=== PATIENT | female | born 1950 | race Two or more races ===

== ENCOUNTER → 2024-09-03 | Outpatient (CLI) | payer OTHER, SELFPAY ==
[2024-09-03 10:40] LABS: Basophils # (Auto) 0.1 Thou/mm3 (0.0-0.2); Basophils % (Auto) 1 % (0-2.5); Eosinophils # (Auto) 0.5 Thou/mm3 (0.0-0.5); Eosinophils % (Auto) 4 % (0-10); Hematocrit 41.5 % (36.0-46.0); Hemoglobin 13.8 g/dL (12.0-16.0); Immature Granulocytes % (Auto) 0 % (0-0); Immature Granulocytes Auto 0.04 Thou/mm3 (0.00-0.00); Lymphocytes % (Auto) 29 % (10-50); Mean Corpuscular HGB Conc 33.3 g/dl (31.0-37.0); Mean Corpuscular Hemoglobin 29.6 pg (25.0-35.0); Mean Corpuscular Volume 89 fL (80-100); Monocytes # (Auto) 0.9 Thou/mm3 (0.0-0.8); Monocytes % (Auto) 9 % (0-12); Neutrophils # (Auto) 6.1 Thou/mm3 (1.8-7.7); Neutrophils % (Auto) 58 % (37-80); Nucleated Red Blood Cell % 0 /100 WBC (0); Platelet Count 367 Thou/mm3 (140-440); RDW Standard Deviation 46.9 fL (36.4-46.3); Red Blood Count 4.67 Miln/mm3 (4.00-5.20); White Blood Count 10.6 Thou/mm3 (3.6-11.0)
[2024-09-03 11:07] LABS: Alanine Aminotransferase 19 U/L (10-49); Albumin, Serum 4.6 gm/dL (3.4-4.8); Albumin/Globulin Ratio 1.6 (1.2-2.2); Alkaline Phosphatase 120 U/L (46-116); Anion Gap 8 (7-16); Aspartate Amino Transferase 25 U/L (0-34); BUN/Creatinine Ratio 41 Ratio (12-20); Bilirubin,Total 0.4 mg/dL (0.3-1.2); Blood Urea Nitrogen 33 mg/dL (9-23); Calcium 9.7 mg/dL (8.3-10.6); Calcium (Corrected) 9.7 mg/dL (8.5-10.1); Chloride 104 mMol/L (98-107); Creatinine (Component) 0.8 mg/dL (0.6-1.3); Globulin 2.9 gm/dL (2.3-3.5); Glucose 103 mg/dL (74-106); Osmolality,Calculated 288 (275-295); Potassium 4.7 mMol/L (3.4-5.1); Sodium 141 mMol/L (136-145); Total Protein 7.5 gm/dL (5.7-8.2); eGFR > 60 See Note
== END | disposition home or self-care (01) ==
LOC: COPL 09:34
PROVIDERS: PCP Family Medicine; Referring Provider Physician Assistant Medical; Visit Provider Physician Assistant Medical
DX: E11.9 Type 2 diabetes mellitus without complications (principal); E78.00 Pure hypercholesterolemia, unspecified; I10 Essential (primary) hypertension; M17.0 Bilateral primary osteoarthritis of knee; M47.812 Spondylosis without myelopathy or radiculopathy, cervical region; M47.816 Spondylosis without myelopathy or radiculopathy, lumbar region; Z13.820 Encounter for screening for osteoporosis; Z78.0 Asymptomatic menopausal state
CPT/HCPCS: 36415; 80053; 85025

== ENCOUNTER 2024-09-04 09:59 | Emergency (ER) | payer OTHER, SELFPAY ==
[2024-09-04 10:13] VITALS: BP 193/82; BP 208/91; PULSE 70; RESP 18; TEMP 36.7; O2SAT 96; BMI 29.7
--- NOTE | 2024-09-04 10:19 | EKG_ITS ---
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
--- NOTE | 2024-09-04 10:20 | XR_ITS ---
Examination: PA lateral chest 2 views TECHNIQUE: Upright PA lateral chest 2 views Exam date and time: September 04, 2024 1035 hours Comparison 04/20/2024 INDICATIONS: Chest pain dizziness beginning today. FINDINGS: Minimal prominence left ventricle Prominent vascular congestion with septal edema at the lung bases Moderate osteopenia Fluid in the fissure on the lateral view IMPRESSION: Suspicious for mild heart failure No lobar pneumonia
--- NOTE | 2024-09-04 10:21 | PD.EDRME ---
Rapid Medical Screening Exam [facility], LAT[facility] Arrival date/time: 09/04/24 09:59 74-year-old female with a history of congestive heart failure, hyperlipidemia, hypertension, type 2 diabetes presents to the emergency room with a chief complaint of a posterior headache, numbness to her left arm x 3 days, and a high blood pressure reading this morning. I have greeted and performed a focused initial assessment of this patient. A comprehensive ED assessment and evaluation of the patient, analysis of all test results, and completion of the medical decision making process will be conducted by additional ED providers. Chief Complaint: Dizziness Time Seen by Provider: 09/04/24 10:07 Vital signs: Vital Signs Temperature 98.1 F 09/04/24 10:13 Pulse Rate 70 09/04/24 10:13 Respiratory Rate 18 09/04/24 10:13 Blood Pressure 208/91 H 09/04/24 10:13 Pulse Oximetry (%) 96 09/04/24 10:13 Oxygen Delivery Method Room Air 09/04/24 10:13 Vital signs reviewed by provider: Yes
[2024-09-04 11:17] LABS: Basophils # (Auto) 0.1 Thou/mm3 (0.0-0.2); Basophils % (Auto) 1 % (0-2.5); Eosinophils # (Auto) 0.3 Thou/mm3 (0.0-0.5); Eosinophils % (Auto) 3 % (0-10); Hematocrit 42.3 % (36.0-46.0); Hemoglobin 14.5 g/dL (12.0-16.0); Immature Granulocytes % (Auto) 0 % (0-0); Immature Granulocytes Auto 0.03 Thou/mm3 (0.00-0.00); Lymphocytes # (Auto) 2.6 Thou/mm3 (1.0-4.8); Lymphocytes % (Auto) 25 % (10-50); Mean Corpuscular HGB Conc 34.3 g/dl (31.0-37.0); Mean Corpuscular Hemoglobin 29.9 pg (25.0-35.0); Mean Corpuscular Volume 87 fL (80-100); Monocytes # (Auto) 0.9 Thou/mm3 (0.0-0.8); Monocytes % (Auto) 9 % (0-12); Neutrophils # (Auto) 6.4 Thou/mm3 (1.8-7.7); Neutrophils % (Auto) 62 % (37-80); Nucleated Red Blood Cell % 0 /100 WBC (0); Platelet Count 339 Thou/mm3 (140-440); RDW Standard Deviation 45.3 fL (36.4-46.3); Red Blood Count 4.85 Miln/mm3 (4.00-5.20); White Blood Count 10.3 Thou/mm3 (3.6-11.0)
--- NOTE | 2024-09-04 11:17 | PD.EDDIZZY ---
ED Dizzyness RME/HPI General Chief Complaint: Dizziness Stated Complaint: Left arm numbness, MOSLEY, dizzy Time Seen by Provider: 09/04/24 10:07 Arrival date/time: 09/04/24 09:59 RME / HPI RME / HPI Narrative: 74-year-old female with a history of congestive heart failure, hyperlipidemia, hypertension, type 2 diabetes presents to the emergency room with a chief complaint of a posterior headache, numbness to her left arm x 3 days, and a high blood pressure reading this morning. Severity of symptoms mild. Patient denies any upper or lower extremity weakness. Denies any chest pain denies any vomiting denies any blurry vision. Patient also denies any fever. Denies any recent fall or trauma. Related Data Home Medications ?Medication ?Instructions ?Recorded ?Confirmed linaclotide 290 mcg capsule 290 mg PO QDAY ##0 10/17/16 05/08/23 (Linzess) carvedilol 12.5 mg tablet (Coreg) 25 mg PO BID 05/26/18 05/08/23 empagliflozin 25 mg tablet 1 tab PO 1XD 03/30/22 05/08/23 (Jardiance) losartan 50 mg tablet 50 tab PO DAILY 04/24/22 05/08/23 nitroglycerin 0.4 mg sublingual 1 tab buccal Q5MIN Chest Pain 04/24/22 05/08/23 tablet aspirin 81 mg chewable tablet 81 mg PO QDAY 01/26/23 05/08/23 clopidogrel 75 mg tablet 75 mg PO QDAY 01/26/23 05/08/23 atorvastatin 20 mg tablet 20 mg PO QDAY 05/08/23 05/08/23 celecoxib 200 mg capsule (Celebrex) mg 05/08/23 gabapentin 300 mg tablet 300 mg PO BID 05/08/23 05/08/23 metformin 1,000 mg tablet 1,000 mg PO QDAY 05/08/23 05/08/23 Held on 05/08/23. Instructions: Resume on 05/10/23. NO TOME METFORMIN POR 48 HORAS. Previous Rx's ?Medication ?Instructions ?Recorded amoxicillin 875 mg-potassium 1 tab PO BID #14 tabs 09/04/24 clavulanate 125 mg tablet Allergies Allergy/AdvReac Type Severity Reaction Status Date / Time No Known Allergies Allergy Verified 04/20/24 16:38 Review of Systems Review of Systems Narrative Review of Systems: Review of system reviewed and within normal limits except mentioned in HPI ED Exam Narrative Physical exam: VITAL SIGNS: Reviewed. GENERAL APPEARANCE: Alert and interactive, follows commands, no acute distress, HEAD AND FACE: Non-traumatic. ENT: PERRL, pink conjunctivitis, eyelid no trauma, Mucous membrane moist. NECK: Supple, nontender, no nuchal rigidity. CHEST: No tenderness, no crepitus, no paradoxical movement, no retractions. LUNGS: Clear, well ventilated, symmetric, no rales, no wheezing, no ronchi, no stridor, good breath sounds bilaterally. HEART: Regular rate, regular rhythm, no murmur, no gallops. ABDOMEN: Soft, positive bowel sounds, nondistended, no guarding, nontender, no rebound, no masses, RECTAL: Deferred. GENITAL: Deferred. NEUROLOGICAL: Gross motor function intact sensory function intact, Appropriate for age. MUSCULOSKELETAL: low back nontender, full range of motion. EXTREMITIES: Nontender, full range of motion. SKIN: Color pink, dry, no rash, no lacerations, no abrasions, no contusions. LYMPHATICS: Deferred. Course Quality Measures none Orders Category Date Time Status EKG (ED ONLY) *Do not use* NOW Care 09/04/24 10:[address] head/brain wo con Stat Exams 09/04/24 12:37 Completed EKG (ED Only) Stat Exams 09/04/24 10:19 Draft XR chest 2V Stat Exams 09/04/24 10:20 Completed B-Type Natriuretic Peptide Stat Lab 09/04/24 10:42 Completed CBC Stat Lab 09/04/24 10:42 Completed Comprehensive Metabolic Panel Stat Lab 09/04/24 10:42 Completed Magnesium Stat Lab 09/04/24 10:42 Completed Troponin I Stat Lab 09/04/24 10:42 Completed Acetaminophen Tab [Tylenol ES Tab] Med 09/04/24 11:27 Discontinued 500 mg PO X1 ONE cloNIDine HCL [Catapres] Med 09/04/24 10:20 Discontinued 0.1 mg PO X1 ONE hydrALAZINE HCL [Apresoline] Med 09/04/24 11:27 Discontinued 25 mg PO X1 ONE Vital Signs Vital signs: Vital Signs Temperature 98.1 F 09/04/24 10:13 Pulse Rate 70 09/04/24 10:13 Respiratory Rate 18 01/31/25 10:13 Blood Pressure 208/91 H 09/04/24 10:13 Pulse Oximetry (%) 96 09/04/24 10:13 Oxygen Delivery Method Room Air 09/04/24 10:13 Dizziness MDM Narrative MDM Narrative:: 74-year-old female with a history of congestive heart failure, hyperlipidemia, hypertension, type 2 diabetes presents to the emergency room with a chief complaint of a posterior headache, numbness to her left arm x 3 days, and a high blood pressure reading this morning. Severity of symptoms mild. Patient denies any upper or lower extremity weakness. Denies any chest pain denies any vomiting denies any blurry vision. Patient also denies any fever. Denies any recent fall or trauma. CT scan of the head came back unremarkable except for acute maxillary sinusitis. #2 workup came back unremarkable. Urinalysis no UTI. EKG showed normal sinus rhythm, ventricular rate of 70 bpm, no ST segment elevation or depression noted. Chest x-ray showed mild congestive heart failure otherwise unremarkable. Patient data External records reviewed:: None Clinical information provided by:: patient and family Social determinants that could affect healthcare access:: none Patient has the following chronic illnesses:: Hypertension congestive heart failure hyperlipidemia diabetes mellitus How is presenting disease/condition affected by chronic disease/condition?: no chronic disease Evaluation data The following diagnostics were reviewed and interpreted by me:: lab results and radiology exam(s) Lab and/or radiology exams considered but not ordered:: None Interpretation Summary: EKG showed sinus rhythm, ventricular rate of 70 bpm, [place] interval 171 MS, no ST segment elevation depression noted. Medications / Prescriptions Medications or Prescriptions considered but not ordered:: None Medication administrations:: Medication Administration History Discontinued Medications Acetaminophen (Acetaminophen 500 Mg Tablet) 500 mg PO X1 ONE Stop: 09/04/24 11:28 Last Admin: 09/04/24 11:47 Dose: 500 mg Documented By: PHILLIP Clonidine (Clonidine Hcl 0.1 Mg Tablet) 0.1 mg PO X1 ONE Stop: 09/04/24 10:21 Last Admin: 09/04/24 11:46 Dose: 0.1 mg Documented By: PHILLIP Hydralazine HCl (Hydralazine Hcl 25 Mg Tablet) 25 mg PO X1 ONE Stop: 09/04/24 11:28 Last Admin: 09/04/24 13:40 Dose: Not Given Documented By: DB Non-Admin Reason: Cancelled by Provider Hydralazine, clonidine, and Tylenol Consultations Consultation(s) initiated? (list below): No Diagnosis Dizziness Differential Diagnosis: adverse reaction to drug and benign paroxysmal positional vertigo Most likely diagnosis given after review of the tests above:: Maxillary sinusitis Admission Indicated Admission indicated?: not indicated Explain why admission is indicated or not indicated:: Stable Admission Request Was there a request for admission?: No Disposition Plan Disposition Plan: Discharge Discharge Attestation Discharge Attestation: The patient and all family members were given an opportunity to ask questions and understood the discharge instructions. Discharge instructions specifically effects, indications for sooner follow up or return to the emergency department, and the expected course of current diagnosis. Patient condition: Stable Discharge Plan Plan Patient Disposition: HOME (Self Care) Disposition Comment: Stable Prescriptions/Referrals Prescriptions/Med Rec: New amoxicillin-pot clavulanate 875-125 mg tablet 1 tab PO BID Qty: 14 0RF No Action Linzess 290 MCG capsule 290 mg PO QDAY Qty: 0 Jardiance 25 mg tablet 1 tab PO 1XD Rx Instructions: pt states she does not take this every day carvedilol [Coreg] 12.5 mg Tablet 25 mg PO BID losartan 50 mg tablet 50 tab PO DAILY nitroglycerin 0.4 mg tablet, sublingual 1 tab BUCCAL Q5MIN MDD 3 celecoxib [Celebrex] 200 mg Capsule atorvastatin 20 mg Tablet 20 mg PO QDAY metformin 1,000 mg Tablet 1,000 mg PO QDAY gabapentin 300 mg Tablet 300 mg PO BID clopidogrel 75 mg tablet 75 mg PO QDAY Patient Comments: TAKE 1 TABLET BY MOUTH EVERY DAY FOR 90 DAYS aspirin 81 mg Tablet,Chewable 81 mg PO QDAY Referrals: Alondra Harper MD [Primary Care Provider] - In 1 week Problem List Clinical Impression: Dizziness, Acute maxillary sinusitis Patient/Caregiver Discharge Instructions Discharge Activity: activity as tolerated Education Materials: Causes of Sinusitis Additional Instructions: Thank you for the opportunity for serving you today. You are stable for discharged . You are advised to: Follow-up with your PCP in 1 to 2 days Return to ED for worsening of symptoms Increase oral fluids Take medication as prescribed Print Language: Serbian Stand Alone Forms: Sammi Award Info., Patient Portal Info Letter TASH/LIBAN Supervising Physician TASH/LIBAN Supervising Physician: MD Rani
[2024-09-04 11:22] VITALS: BP 186/70; PULSE 75; RESP 13; O2SAT 98
[2024-09-04 11:42] LABS: B-Type Natriuretic Peptide 123 pg/mL (0-100)
[2024-09-04 11:46] VITALS: BP 186/70; PULSE 61
[2024-09-04] MEDS: cloNIDine HCL 0.1 MG TABLET PO (11:46)
[2024-09-04] MEDS: ACETAMINOPHEN 500 MG TABLET PO (11:47)
[2024-09-04 12:02] LABS: Alanine Aminotransferase 16 U/L (10-49); Albumin, Serum 4.9 gm/dL (3.4-4.8); Albumin/Globulin Ratio 1.5 (1.2-2.2); Alkaline Phosphatase 116 U/L (46-116); Anion Gap 8 (7-16); Aspartate Amino Transferase 24 U/L (0-34); BUN/Creatinine Ratio 31 Ratio (12-20); Bilirubin,Total 0.4 mg/dL (0.3-1.2); Blood Urea Nitrogen 25 mg/dL (9-23); Calcium 9.7 mg/dL (8.3-10.6); Calcium (Corrected) 9.7 mg/dL (8.5-10.1); Chloride 104 mMol/L (98-107); Creatinine (Component) 0.8 mg/dL (0.6-1.3); Estimated Creatinine Clearance 47.5 mL/min (>60); Globulin 3.2 gm/dL (2.3-3.5); Glucose 129 mg/dL (74-106); Osmolality,Calculated 287 (275-295); Potassium 4.3 mMol/L (3.4-5.1); Sodium 141 mMol/L (136-145); Total Protein 8.1 gm/dL (5.7-8.2); Troponin I < 0.020 ng/mL (0.0-0.045); eGFR > 60 See Note
--- NOTE | 2024-09-04 12:37 | XR_ITS ---
Examination: CT brain head without contrast. 2-D sagittal coronal reconstructions Date and time of exam:September 04, 2024 1316 hours INDICATIONS: Generalized head pain today COMPARISON: 04/20/2024 CTDI: vol (mGy):46.9 DLP: (mGycm):18 Technique: Multiple CT axial sections of the brain have been obtained, 5 mm slice thickness. Contrast has not been administered. 2-D sagittal, coronal reconstructions have been obtained Low dose protocols were performed. One or more of the following dose reduction techniques were used; automated exposure control, adjustment of the mA and/or KV according to patient size, use of iterative reconstruction technique. Findings: No significant ventricular enlargement. Intra-axial or extra-axial hemorrhage density is not seen. No mass effect or midline shift Basal cisterns are not remarkable. Fourth ventricle is midline. Cranial vault intact. Chronic ethmoid sinusitis Acute right maxillary sinusitis Impression: Negative for acute hemorrhage, mass effect or midline shift Acute right maxillary sinusitis
[2024-09-04 13:36] VITALS: BP 128/62; PULSE 68; RESP 16; TEMP 36.7; O2SAT 98
[2024-09-04 15:47] VITALS: BP 165/68; PULSE 68; RESP 16; TEMP 36.6; O2SAT 96
== END 2024-09-04 15:48 | disposition home or self-care (01) ==
PROVIDERS: Nurse Practitioner Family; Emergency Provider Emergency Medicine; PCP Family Medicine
DX: R42 Dizziness and giddiness (principal); J01.00 Acute maxillary sinusitis, unspecified; I11.0 Hypertensive heart disease with heart failure; I50.9 Heart failure, unspecified; E78.5 Hyperlipidemia, unspecified; E11.9 Type 2 diabetes mellitus without complications
CPT/HCPCS: 36415; 70450; 71046; 80053; 83735; 83880; 84484; 85025; 93005; 99284; A9270

== ENCOUNTER 2024-09-18 21:57 | Emergency (ER) | payer OTHER, SELFPAY ==
[2024-09-18] VITALS (19 sets, daily range): BP systolic 0–259; BP diastolic 0–157; PULSE 0–149; RESP 2–64; O2SAT 39–77; BMI 26.9
[2024-09-18] MEDS: EPINEPHrine INJ 0.1 MG/ML SYRINGE 10ML 1 MG IV (22:08)
[2024-09-18] MEDS: ETOMIDATE INJ 2 MG/ML VIAL 10 ML 20 MG IVP (22:11)
[2024-09-18] MEDS: SUCCINYLCHOLINE INJ 20 MG/ML VIAL 10 ML 100 MG IV (22:11)
--- NOTE | 2024-09-18 22:15 | PD.EDCHEST ---
ED Chest Pain RME/HPI General Chief Complaint: Chest Pain Stated Complaint: SOB, CHEST PAIN Time Seen by Provider: 09/18/24 22:02 Arrival date/time: 09/18/24 21:57 RME / HPI RME / HPI narrative: This section includes all my notes and documentations, including HPI, PE, and ED course. Bright Saravia MD HPI: 74yo female with a history of HTN, HLD, DM presents to the ED for a chief complaint of chest pain. Per nursing staff, patient was saturating at 46% RA in triage and was immediately placed in a room. Patient was also found to be bradycardic in the 40s. Code lindsay was called at 2206 and was intubated at 2213. Per , patient was having chest pain and a cough today, reporting she took 2 nitro (1 at 1500 and another just PATIENT CARE REPRESENTATIVE) without any alleviation of symptoms and appeared to be short of breath, so he brought her in for evaluation. He states she did start coughing blood PATIENT CARE REPRESENTATIVE. Notes that she did recently travel here from [facility]. No other complaints reported. ROS: All negative except as documented in HPI. Physical Exam: General: Lethargic. In severe respiratory distress. Eyes: Conjunctivae and lids clear. ENT: No nasal congestion. Neck: Supple. Heart: Bradycardic. Lungs: In severe respiratory distress. Severely decreased air movement with bilateral rails. Abdomen: Soft and nontender. Legs: No clubbing, cyanosis, edema. Skin: Warm and dry. Neuro: Lethargic. Cranial nerves II through XII grossly normal. No peripheral motor deficits. Prior to diagnostic tests, patient coded. After each resuscitation, she coded again. She coded 4X here. For each code, ACLS protocol followed including cycles of 2-minute chest compressions. I reviewed all diagnostic test results. My interpretation of the EKG is sinus rhythm with nonspecific ST?T changes. My interpretation of the chest x-ray is severe bilateral opacities. My review of the head CT report is no acute findings. My review of the chest CT report is extensive bilateral pneumonia, no PE. Blood tests remarkable for WBC 16.4, D-dimer > 3820, lactic acid 4.9, BNP 194, and negative troponin. UA ordered but urine specimen not sent to lab. Treatment here included Etomidate, Succinylcholine, Epinephrine, Atropine, Propofol, Metoprolol, Magnesium Sulfate, and Heparin. See code sheet for details. Initially, atropine given due to bradycardia. Metoprolol given due to severe high BP and severe tachycardia. MgSO4 2 gram IV given due to short runs of VT. Heparin given prior to chest CT results, due to very high risk of PE. Patient recently drove to [facility] and back. And family reported hemoptysis just prior to arrival. Family requested we stop all efforts. Patient at 2350. Rest in peace. Bright Saravia MD Related Data Home Medications ?Medication ?Instructions ?Recorded ?Confirmed linaclotide 290 mcg capsule 290 mg PO QDAY ##0 10/17/16 05/08/23 (Linzess) carvedilol 12.5 mg tablet (Coreg) 25 mg PO BID 05/26/18 05/08/23 empagliflozin 25 mg tablet 1 tab PO 1XD 03/30/22 05/08/23 (Jardiance) losartan 50 mg tablet 50 tab PO DAILY 04/24/22 05/08/23 nitroglycerin 0.4 mg sublingual 1 tab buccal Q5MIN Chest Pain 04/24/22 05/08/23 tablet aspirin 81 mg chewable tablet 81 mg PO QDAY 01/26/23 05/08/23 clopidogrel 75 mg tablet 75 mg PO QDAY 01/26/23 05/08/23 atorvastatin 20 mg tablet 20 mg PO QDAY 05/08/23 05/08/23 celecoxib 200 mg capsule (Celebrex) mg 05/08/23 gabapentin 300 mg tablet 300 mg PO BID 05/08/23 05/08/23 metformin 1,000 mg tablet 1,000 mg PO QDAY 05/08/23 05/08/23 Held on 05/08/23. Instructions: Resume on 05/10/23. NO TOME METFORMIN POR 48 HORAS. Previous Rx's ?Medication ?Instructions ?Recorded amoxicillin 875 mg-potassium 1 tab PO BID #14 tabs 09/04/24 clavulanate 125 mg tablet Allergies Allergy/AdvReac Type Severity Reaction Status Date / Time No Known Allergies Allergy Verified 04/20/24 16:38 Review of Systems Review of Systems Systems Reviewed: All systems reviewed, normal except as documented Past Medical History Past Medical History NEUROLOGIC: Negative Neurological Disorders or Seizures CARDIAC: Positive Cardiac Disorders, Angina, Coronary Artery Disease, Hypercholesterolemia and Hypertension; Negative Congestive Heart Failure RESPIRATORY: Positive Pneumonia; Negative Chronic Obstructive Pulmonary Disease (COPD) or Asthma GASTROINTESTINAL: Positive Gastrointestinal Disorders and Irritable Bowel GENITOURINARY: Positive Genitourinary Disorders; Negative Renal Disease REPRODUCTIVE: Positive Previous Pregnancies; Negative Pelvic Inflammatory Disease MUSCULOSKELETAL: Positive Musculoskeletal Disorders, Arthritis and Osteomyelitis ENT: Positive Cataracts ENDOCRINE: Positive Endocrine Disorders and Diabetes Mellitus Type 2; Negative Diabetes Mellitus Type 1 HEMATOLOGIC: Positive Blood Disorders and Anemia OTHER HISTORY: Negative Blood Transfusions, Blood Transfusion Reaction, Anesthesia Reactions or Cancer Family History FAMILY HISTORY: Negative Family Cardiac Disorders or Family Cancer Surgical History SURGICAL: Positive Cardiac Surgery, Coronary Stent, Cardiac Catheterization, Angiogram and Tubal Ligation; Negative Pacemaker, Endocrine Surgery, Abdominal Surgery or Joint Replacement Social History SMOKING STATUS: Never smoker SECOND HAND EXPOSURE: Yes (as a child) ED Exam Narrative Physical exam: As noted in HPI. Course Course Course Narrative: 6: Code blue called overhead. CPR started. 2208: ROSC obtained. See code sheet for medication details. 2213: Patient intubated. See procedure note. CXR is ordered for post intubation. 2258: Code blue called overhead. Responded to code. I spoke with the patient's , who requests to keep the patient a full code. 2302: ROSC obtained. See code sheet for details. 2320: Code blue called overhead. Responded to code. 2324: ROSC obtained. See code sheet for details. 2332: Code blue called overhead. Responded to code. 2335: ROSC obtained. 2336: I spoke with the patient's family again at bedside due to the patient's deteriorating condition. They requested to change the patient to DNR. 2350: Patient . Quality Measures comfort care/end of life Orders Category Date Time Status CT Screening NOW Care 09/18/24 22:19 Completed EKG (ED ONLY) *Do not use* NOW Care 09/18/24 22:17 Completed Pérez to Leg Bag Routine Care 09/18/24 22:17 Ordered Insert NG / OG tube NOW Care 09/18/24 22:17 Completed Intubation NOW Care 09/18/24 23:07 Completed Notify provider NOW Care 09/18/24 22:36 Completed Saline [Insert IV] NOW Care 09/18/24 22:[address] angio chest abdomen pelvis Stat Exams 09/18/24 22:[address] head/brain wo con Stat Exams 09/18/24 22:23 Completed EKG (ED Only) Stat Exams 09/18/24 22:17 Ordered XR chest 1V portable Stat Exams 09/18/24 22:17 Completed BNP [B-Type Natriuretic Peptide] Stat Lab 09/18/24 23:07 Completed Blood Culture (Lab) Stat Lab 09/18/24 22:10 Received CBC Stat Lab 09/18/24 22:10 Completed CMP [Comprehensive Metabolic Panel] Stat Lab 09/18/24 23:07 Completed CRP [C-Reactive Protein] Stat Lab 09/18/24 23:07 Completed D-Dimer Stat Lab 09/18/24 23:07 Completed ESR [Sed Rate (ESR)] Stat Lab 09/18/24 22:10 Completed Lactate (Lactic Acid) Stat Lab 09/18/24 22:10 Completed Magnesium Stat Lab 09/18/24 23:07 Completed PT [Prothrombin Time with INR] Stat Lab 09/18/24 23:07 Completed PTT [Partial Thromboplastin Time] Stat Lab 09/18/24 23:07 Completed Procalcitonin Stat Lab 09/18/24 23:07 Completed TSH [Thyroid Stimulating Hormone] Stat Lab 09/18/24 23:07 Completed Troponin I Stat Lab 09/18/24 23:07 Completed Atropine Inj Vial Med 09/18/24 22:17 Discontinued 1 mg IV X1 ONE EPINEPHrine Inj Abboject Med 09/18/24 22:17 Discontinued 1 mg IV X1 ONE EPINEPHrine in NS 4 MG IVPB [Adrenalin/NS 4 MG IVPB] Med 09/18/24 23:05 Discontinued 4 mg in 250 ml IV 0.05 mcg/kg/min Etomidate Inj [Amidate Inj] Med 09/18/24 22:04 Discontinued 20 mg .ROUTE .STK-MED ONE Etomidate Inj [Amidate Inj] Med 09/18/24 22:17 Discontinued 20 mg IVP X1 ONE Heparin Inj Med 09/18/24 22:34 Discontinued 5,000 unit IVP X1 ONE Heparin/D5w 25K 250 ML Ivpb [Heparin in D5w Ivpb] Med 09/18/24 22:45 Discontinued 25,000 unit in 250 ml IV 18 units/kg/hr Magnesium Sulfate 2 GM Ivpb [Magnesium Sulfate Ivpb] Med 09/18/24 22:17 Discontinued 2 gm in 50 ml IV X1 Magnesium Sulfate 2 GM Ivpb [Magnesium Sulfate Ivpb] 50 Med 09/18/24 22:09 Discontinued ml IV .STK-MED Metoprolol Tartrate Inj [Lopressor Inj] Med 09/18/24 22:22 Discontinued 2.5 mg IVP X1 ONE Propofol 1,000 mg Ivpb [Diprivan Ivpb] Med 09/18/24 22:22 Discontinued 1,000 mg in 100 ml IV 5 mcg/kg/min Succinylcholine Inj [Anectine Inj] Med 09/18/24 22:17 Discontinued 100 mg IV X1 ONE Succinylcholine Inj [Anectine Inj] Med 09/18/24 22:05 Discontinued 200 mg .ROUTE .STK-MED ONE cefTRIAXone/D5w 1gm IV premix [Rocephin/D5w 1gm IV Med 09/18/24 22:55 Discontinued premix] 50 ml IV X1 Code Status Routine Oth 09/18/24 23:38 Completed Volume Ventilator Stat RT 09/18/24 23:07 Active Vital Signs Vital signs: Vital Signs Pulse Rate 0 L 09/18/24 22:08 Blood Pressure 0/0 L 09/18/24 22:08 Procedures -ED Intubation Time out performed: No (performed emergently) sedative: Etomidate Mg Given: 20 paralytic: Succinylcholine Mg Given: 100 Laryngoscope: Buck Assist Device Used: Bougie ET Tube Size: 7.5 ET Tube Uncuffed: No Tube Secured Depth (cm): 20 Tube Secured Location: teeth Tube Placement Confirmation: visualized tube passing through cords, equal breath sounds bilaterally, no breath sounds over epigastrium and confirmation by capnometry Patient Tolerated Procedure: well and no complications Chest Pain MDM Narrative MDM Narrative:: Scribe Attestation: 09/18/24 - Kim Bazan am scribing for and in the presence of Dr. Saravia. Patient data External records reviewed:: [facility] previous records (Per chart review, patient was seen here on 09/04/24 for acute maxillary sinusitis,) Clinical information provided by:: other (specify) (nursing staff) Social determinants that could affect healthcare access:: none Patient has the following chronic illnesses:: HTN, HLD, DM How is presenting disease/condition affected by chronic disease/condition?: uneffected by Evaluation data The following diagnostics were reviewed and interpreted by me:: lab results, radiology exam(s) and EKG tracing(s) Lab and/or radiology exams considered but not ordered:: none Interpretation Summary: Cardiopulmonary arrest Medications / Prescriptions Medications or Prescriptions considered but not ordered:: none Medication administrations:: Medication Administration History Discontinued Medications Atropine Sulfate (Atropine Sulf Inj 1 Mg/Ml Vial) 1 mg IV X1 ONE Stop: 09/18/24 22:18 Epinephrine HCl (Epinephrine Inj 0.1 Mg/Ml Syringe 10ml) 1 mg IV X1 ONE Stop: 09/18/24 22:18 Last Admin: 09/18/24 22:08 Dose: 1 mg Documented By: TC Etomidate (Etomidate Inj 2 Mg/Ml Vial 10 Ml) Confirm Administered Dose 20 mg .ROUTE .STK-MED ONE Stop: 09/18/24 22:05 Last Admin: 09/19/24 01:21 Dose: Not Given Documented By: TC Non-Admin Reason: Duplicate Medication on eMAR Etomidate (Etomidate Inj 2 Mg/Ml Vial 10 Ml) 20 mg IVP X1 ONE Stop: 09/18/24 22:18 Last Admin: 09/18/24 22:11 Dose: 20 mg Documented By: JOSSIE Heparin Sodium (Porcine) (Heparin Sod Inj 5000 Unit/Ml Vial) 5,000 unit IVP X1 ONE Stop: 09/18/24 22:35 Magnesium Sulfate (Magnesium Sulfate Ivpb) Confirm Administered Dose 50 mls @ ud IV .STK-MED ONE Stop: 09/18/24 22:10 Last Admin: 09/19/24 01:21 Dose: Not Given Documented By: TC Non-Admin Reason: Duplicate Medication on eMAR Magnesium Sulfate (Magnesium Sulfate Ivpb) 2 gm in 50 mls @ 25 mls/hr IV X1 ONE Stop: 09/19/24 00:16 Last Admin: 09/18/24 22:23 Dose: 25 mls/hr Documented By: JOSSIE Propofol (Diprivan Ivpb) 1,000 mg in 100 mls @ 2 mls/hr IV .Q24H PRN; Protocol PRN Reason: PER PROTOCOL Stop: 10/18/24 22:21 Last Admin: 09/18/24 22:24 Dose: 10 mcg/kg/min, 4.001 mls/hr Documented By: JOSSIE Co-signed By: TANESHA Heparin Sodium/Dextrose (Heparin In D5w Ivpb) 25,000 unit in 250 mls @ 12.002 mls/hr IV .[id number] MK; Protocol Stop: 10/02/24 22:44 Ceftriaxone Sodium/Dextrose (Rocephin/D5w 1gm Iv Premix) 50 mls @ 100 mls/hr IV X1 ONE Stop: 09/18/24 23:24 Epinephrine/Sodium Chloride (Adrenalin/Ns 4 Mg Ivpb) 4 mg in 250 mls @ 12.502 mls/hr IV .Q20H PRN; Protocol PRN Reason: per protocol Stop: 10/18/24 23:04 Last Titration: 09/18/24 23:26 Dose: 0 mcg/kg/min, 1 mls/hr Documented By: Admin: 09/18/24 23:16 Dose: 0.5 mcg/kg/min, 125.021 mls/hr Documented By: TC Metoprolol Tartrate (Metoprolol Tartrate Inj 1 Mg/Ml Amp 5 Ml) 2.5 mg IVP X1 ONE Stop: 09/18/24 22:23 Succinylcholine Chloride (Succinylcholine Inj 20 Mg/Ml Vial 10 Ml) Confirm Administered Dose 200 mg .ROUTE .STK-MED ONE Stop: 09/18/24 22:06 Last Admin: 09/19/24 01:21 Dose: Not Given Documented By: TC Non-Admin Reason: Duplicate Medication on eMAR Succinylcholine Chloride (Succinylcholine Inj 20 Mg/Ml Vial 10 Ml) 100 mg IV X1 ONE Stop: 09/18/24 22:18 Last Admin: 09/18/24 22:11 Dose: 100 mg Documented By: TC Etomidate, Succinylcholine, Epinephrine, Atropine, Propofol, Metoprolol, Magnesium Sulfate, Heparin Consultations Consultation(s) initiated? (list below): No Diagnosis Chest Pain Differential Diagnosis: pneumothorax, stable angina, unstable angina pectoris, atypical chest pain, st elevation myocardial infarction, costochondritis and other (PE, CVA, sepsis, electro abnormalities) Most likely diagnosis given after review of the tests above:: Cardiopulmonary arrest Admission Indicated Admission indicated?: not indicated Explain why admission is indicated or not indicated:: Patient . Admission Request Was there a request for admission?: No Disposition Plan Disposition Plan: other (specify) (Patient .) Critical Care Time Critical Care Time Critical Care Time: Yes Total Critical Care Time (min.): 60 Attestation: Due to a high probability of clinically significant, life threatening deterioration, the patient required my highest level of preparedness to intervene emergently and I personally spent this critical care time directly and personally managing the patient. This critical care time included obtaining a history; examining the patient; ordering and review of studies; arranging urgent treatment with development of a management plan; evaluation of patient's response to treatment; frequent reassessment; and discussions with family and other providers. It was exclusive of separately billable procedures and treating other patients and teaching time. Bright Saravia MD Discharge Plan Plan Patient Disposition: Prescriptions/Referrals Referrals: Anish Harper MD [Primary Care Provider] - In 1 week Problem List Clinical Impression: Cardiopulmonary arrest Patient/Caregiver Discharge Instructions Print Language: Urdu
--- NOTE | 2024-09-18 22:17 | XR_ITS ---
Examination: AP chest single view Technique one AP portable supine chest single view Exam date and time: September 18, 2024 1028 hrs. Comparison September 04, 2024 Indications: Status post cardiopulmonary arrest hypoxic respiratory failure Findings: Extensive bilateral lung opacity Tracheal tube tip 4.3 cm above salvador Orogastric tube in the stomach Normal heart size No pneumothorax Impression: Extensive bilateral lung opacity, consider aspiration pneumonia, pulmonary edema Endotracheal tube tip 4.3 cm above salvador
[2024-09-18] MEDS: Magnesium Sulfate 2 GM Ivpb 2 GM/50 ML BAG IV (22:23)
--- NOTE | 2024-09-18 22:23 | XR_ITS ---
Examination: CT brain head without contrast. 2-D sagittal coronal reconstructions Date and time of exam:September 18, 2024 1042 hrs. Indications: Altered mental status today CTDI: vol (mGy):54.5 DLP: (mGycm):1160 Technique: Multiple CT axial sections of the brain have been obtained, 5 mm slice thickness. Contrast has not been administered. 2-D sagittal, coronal reconstructions have been obtained Low dose protocols were performed. One or more of the following dose reduction techniques were used; automated exposure control, adjustment of the mA and/or KV according to patient size, use of iterative reconstruction technique. Findings: No significant ventricular enlargement. Intra-axial or extra-axial hemorrhage density is not seen. No mass effect or midline shift Basal cisterns are not remarkable. Fourth ventricle is midline. Cranial vault intact. Acute left maxillary sinusitis Impression: Multiple artifacts in the posterior fossa Negative for acute hemorrhage, mass effect or midline shift
--- NOTE | 2024-09-18 22:23 | XR_ITS ---
Examination: CTA chest, with intravenous contrast. CTA abdomen, with intravenous contrast. CTA pelvis, with intravenous contrast. 2-D sagittal and coronal reconstructions. 3-D reconstructions. Date and time of exam: September 18, 2024 1050 hrs. Indications: Onset chest pain shortness of breath abdominal pain today CTDI vol (mgy) 16.9 DLP (MGycm) 1021 Technique: Multiple CTA images, 2.0 mm slice thickness, obtained chest, abdomen, pelvis, with the high-resolution 64 slice scanner. 100 cc Isovue-370 is administered intravenously. Sagittal and coronal 2-D reconstructions are obtained. 3-D reconstructions, angiographic images are obtained. 3-D postprocessing, including vascular maximum intensity projections. Low dose protocols were performed. One or more of the following dose reduction techniques were used; automated exposure control, adjustment of the mA and/or KV according to patient size, use of iterative reconstruction technique. Findings: No thoracic aortic aneurysm dilatation or dissection No pulmonary artery filling defects Heavy calcification left anterior descending left circumflex right coronary arteries Severe bilateral lung opacity No focal liver lesions No gallstones No pancreatic or adrenal mass Edema involving the right kidney No hydronephrosis Normal appendix No bowel obstruction Atrophic uterus No diverticulitis Urinary bladder contracted around a Pérez catheter, mild urinary bladder wall thickening Prominent osteopenia Impression: Severe bilateral pneumonia Negative for pulmonary artery emboli Edema involving the right kidney consistent with right pyelonephritis Normal appendix No bowel obstruction
[2024-09-18] MEDS: PROPOFOL 1,000 MG IVPB 1,000 MG/100 ML VIAL 4.001 MG IV (22:24)
[2024-09-18 22:42] LABS: Lactate (Lactic Acid) 4.9 mMol/L (0.4-2.0)
[2024-09-18 22:45] LABS: Basophils # (Auto) 0.1 Thou/mm3 (0.0-0.2); Basophils % (Auto) 1 % (0-2.5); Eosinophils # (Auto) 0.5 Thou/mm3 (0.0-0.5); Eosinophils % (Auto) 3 % (0-10); Hematocrit 44.1 % (36.0-46.0); Hemoglobin 14.8 g/dL (12.0-16.0); Immature Granulocytes % (Auto) 0 % (0-0); Immature Granulocytes Auto 0.05 Thou/mm3 (0.00-0.00); Lymphocytes # (Auto) 7.4 Thou/mm3 (1.0-4.8); Lymphocytes % (Auto) 45 % (10-50); Mean Corpuscular HGB Conc 33.6 g/dl (31.0-37.0); Mean Corpuscular Hemoglobin 29.8 pg (25.0-35.0); Mean Corpuscular Volume 89 fL (80-100); Monocytes # (Auto) 1.1 Thou/mm3 (0.0-0.8); Monocytes % (Auto) 7 % (0-12); Neutrophils # (Auto) 7.3 Thou/mm3 (1.8-7.7); Neutrophils % (Auto) 44 % (37-80); Nucleated Red Blood Cell % 0 /100 WBC (0); Platelet Count 354 Thou/mm3 (140-440); RDW Standard Deviation 46.6 fL (36.4-46.3); Red Blood Count 4.97 Miln/mm3 (4.00-5.20); White Blood Count 16.4 Thou/mm3 (3.6-11.0)
[2024-09-18] MEDS: EPINEPHrine in NS 4 MG IVPB 4 MG/250 ML BAG 125.021 MG IV (23:16)
[2024-09-18 23:36] LABS: Sed Rate (ESR) 16 mm/hr (0-30)
[2024-09-18 23:49] LABS: Alanine Aminotransferase 67 U/L (10-49); Albumin, Serum 3.1 gm/dL (3.4-4.8); Albumin/Globulin Ratio 1.2 (1.2-2.2); Alkaline Phosphatase 136 U/L (46-116); Anion Gap 7 (7-16); Aspartate Amino Transferase 78 U/L (0-34); BUN/Creatinine Ratio 44 Ratio (12-20); Bilirubin,Total 0.2 mg/dL (0.3-1.2); Blood Urea Nitrogen 40 mg/dL (9-23); C-Reactive Protein 1.6 mg/dL (0.0-0.9); Calcium 7.9 mg/dL (8.3-10.6); Calcium (Corrected) 8.6 mg/dL (8.5-10.1); Carbon Dioxide > 40.0 mMol/L (20.0-31.0); Chloride 103 mMol/L (98-107); Creatinine (Component) 0.9 mg/dL (0.6-1.3); Estimated Creatinine Clearance 47.6 mL/min (>60); Globulin 2.5 gm/dL (2.3-3.5); Glucose 316 mg/dL (74-106); Magnesium 2.6 mg/dL (1.6-2.6); Osmolality,Calculated 319 (275-295); Potassium 4.2 mMol/L (3.4-5.1); Procalcitonin 0.04 ng/ml (0.0-0.49); Sodium 150 mMol/L (136-145); Thyroid Stimulating Hormone 4.11 uIU/mL (0.55-4.78); Total Protein 5.6 gm/dL (5.7-8.2); Troponin I < 0.020 ng/mL (0.0-0.045); eGFR > 60 See Note
--- NOTE | 2024-09-18 23:50 | PC.NURSE ---
Time of called by Dr. Saravia @ 1003
[2024-09-19] LABS: B-Type Natriuretic Peptide 194 pg/mL (0-100)
--- NOTE | 2024-09-19 00:24 | PC.NURSE ---
S/T Maya with Organ donation # [phone]
--- NOTE | 2024-09-19 00:36 | PC.NURSE ---
Called [facility] and spoke to Tiara, advised to call Dmitriy once family is ready
--- NOTE | 2024-09-19 00:57 | PC.NURSE ---
Spoke to Gail @ [facility] home awaiting call back with JONO
[2024-09-19 01:05] LABS: D-Dimer > 3820 ng/mL (<600)
[2024-09-19 01:17] LABS: INR 1.1 (0.9-1.3); Partial Thromboplastin Time 29.7 Seconds (22.0-36.0); Prothrombin Time 11.9 Seconds (9.0-12.2)
[2024-09-19 01:34] LABS: Reflex Lactate? Y
== END 2024-09-18 23:50 | disposition expired ==
PROVIDERS: Emergency Provider Emergency Medicine; PCP Family Medicine
DX: J18.9 Pneumonia, unspecified organism (principal); I46.8 Cardiac arrest due to other underlying condition; Z77.22 Contact with and (suspected) exposure to environmental tobacco smoke (acute) (chronic); I10 Essential (primary) hypertension; E78.00 Pure hypercholesterolemia, unspecified; I25.10 Atherosclerotic heart disease of native coronary artery without angina pectoris
CPT/HCPCS: 31500; 51702; 36415; 36600; 70450; 71045; 71275; 74174; 80053; 80307; 81001; 82803; 83605; 83735; 83880; 84145; 84443; 84484; 85025; 85379; 85610; 85652; 85730; 86140; 87040; 87205; 87634; 92950; 93005; 94002; 99291; A4649; J0171; J0330; J0461; J2704; J3475; J3490; Q9967